=== PATIENT | female | born 1940 | race Caucasian/White ===

== ENCOUNTER 2023-07-01 13:37 | Emergency (ER) | payer MEDICARE, SELFPAY ==
[2023-07-01 14:00] VITALS: BP 149/79
[2023-07-01 14:25] LABS: % Basophils 0.5 % (0-2); % Eosinophils 1.4 % (0-6); % Immature Granulocytes 0.3 % (0-0.5); % Lymphocytes 24.5 % (20.5-51.1); % Monocytes 7.7 % (1.7-9.3); % Neutrophils 65.6 % (42.2-75.2); Absolute Eosinophils 0.1 10^3/uL (0-0.7); Absolute Lymphocytes 1.6 10^3/uL (1.2-3.4); Absolute Monocytes 0.5 10^3/uL (0.1-0.6); Absolute Neutrophils 4.2 10^3/uL (1.4-6.5); Hematocrit 32.5 % (37.0-47.0); Hemoglobin 11.2 g/dL (12.0-16.0); Mean Corp Hgb Conc. 34.5 g/dL (33.0-37.0); Mean Corpuscular Hgb 33.1 pg (27.0-31.0); Mean Corpuscular Volume 96.2 fL (81.0-99.0); Mean Platelet Volume 8.9 fL (7.4-10.4); Nucleated Red Blood Cells % 0 %; Platelet Count 222 10^3/uL (130-400); Red Blood Cell Count 3.38 10^6/uL (4.20-5.40); Red Cell Dist. Width 13.2 % (11.5-14.5); White Blood Cell Count 6.4 10^3/uL (4.8-10.8)
[2023-07-01 14:40] LABS: ALT (SGPT) 22 U/L (0-35); AST (SGOT) 26 U/L (14-36); Albumin 3.8 g/dl (3.5-5.0); Alkaline Phosphatase 96 U/L (38-126); Blood Urea Nitrogen 17 mg/dl (7-17); Calcium 9.1 mg/dl (8.4-10.2); Carbon Dioxide 24 mmol/L (22-30); Chloride 104 mmol/L (98-107); Glucose 107 mg/dl (70-99); Lipase 117 U/L (23-300); Potassium 4.3 mmol/L (3.5-5.1); Sodium 133 mmol/L (135-145); Total Bilirubin 0.5 mg/dl (0.2-1.3); Total Protein 5.9 g/dl (6.3-8.2); eGFR > 60.00
--- NOTE | 2023-07-01 17:04 | ED.GENMED ---
History of Present Illness
General
Chief Complaint: Abdominal Pain
Source: patient
Exam Limitations: none
Time Seen by Provider: 07/01/23 16:53
Travel History
Have you had any contact with someone who has COVID-19?: No
Do you have any symptoms of coronavirus? Fever > 100 degrees, chills, cough, shortness of breath, sore throat, loss of taste or smell, muscle aches, or headache?: No
History of Present Illness
History of Present Illness:
82-year-old female qbk-[id number]-lscpfnnxo diabetic presents complaining of increasing right upper abdominal pain that radiates to the back. She was here in May and diagnosed with gallstones. She has in the interim seen general surgery and had
elective cholecystectomy scheduled for July 10. The pain got worse and she is now unable to tolerate anything by mouth. She denies fever. She cannot control the pain at home she presents for further evaluation. No other complaints at this
time.
Past History
Past History
ED Past Medical History: CHF, GERD, HTN, Hypercholesterolemia, NIDDM, Valvular disease and Psychiatric
ED Past Surgical History: Cardiac and Tonsilectomy
Social History
Tobacco: Non-smoker
Alcohol: None
Drug: None
Personal: Single
Living: with family
Phy Exam
Physical Exam
Physical Exam:
General: Uncomfortable appearing female no acute respiratory distress
HEENT: Normocephalic atraumatic sclera anicteric neck is supple
Heart: Regular rate and rhythm no murmurs
Lungs: Clear to auscultation bilaterally no wheezing
Abdomen: Soft tender to right upper quadrant mild guarding no rebound tenderness normal bowel sounds nondistended
Extremities: No cyanosis or edema
Skin: Warm no rash or lesion
Course
Orders/Labs/Results
Orders:
Orders
07/01/23 14:08
Complete Blood Count/With Diff Urgent
Comprehensive Metabolic Panel Urgent
Lipase Urgent
07/01/23 17:03
Ketorolac [Toradol] 15 mg IV NOW STA
US Abdomen Complete/Upper Urgent
Comment:
Reason For Exam: RUQ pain
Abnormal Lab Results
07/01/23
14:08
RBC 3.38 L 10^6/uL
(4.20-5.40)
Hgb 11.2 L g/dL
(12.0-16.0)
Hct 32.5 L %
(37.0-47.0)
MCH 33.1 H pg
(27.0-31.0)
Sodium 133 L mmol/L
(135-145)
Glucose 107 H mg/dl
(70-99)
Total Protein 5.9 L g/dl
(6.3-8.2)
07/01/23 14:08
07/01/23 14:08
Vital Signs
Initial and Last Documented VS:
Initial Vital Signs
Temp Pulse Resp BP Pulse Ox
98.8 F 97 20 149/79 99
07/01/23 14:00 07/01/23 14:00 07/01/23 14:00 07/01/23 14:00 07/01/23 14:00
Last Documented Vital Signs
Temp Pulse Resp BP Pulse Ox
98.6 F 72 18 135/64 96
07/01/23 19:41 07/01/23 19:00 07/01/23 18:45 07/01/23 19:00 07/01/23 19:00
MDM/Problems Addressed
Differential Diagnosis Includes:
Right upper quadrant pain. Known gallstones. Consider biliary colic versus cholecystitis. Will check labs. Repeat ultrasound. Toradol will be given for pain.
She was here in May of last year and discussion was had to potentially admit versus go home. She decided to go home at that point.
*Critical Care Note
Total Time (30-74mins, 75-104mins- exclusive of procedures): Not Applicable
Update Note
Update Note:
Reevaluated multiple times. Patient still comfortable drinking water. Discussed findings again with patient. There is cholelithiasis without cholecystitis on the ultrasound. Labs are normal. Discussed with general surgery. At this point
cholecystectomy would not happen tomorrow if she were to stay. Patient wishes not to stay. She will wait at home. Will prescribe pain medicine in the event of recurrent discomfort. Return precautions were given otherwise
ED Attending Note
-
Portions of this chart may have been created with voice recognition software.� Occasional wrong word or��sound alike� substitutions may have occurred due to the inherent limitations of voice recognition software.
Discharge Plan
Departure
Patient Disposition: Home (Routine Discharge)
Date of Disposition: 07/01/23
Time of Disposition: 21:03
Patient with high blood pressure during this ER visit?: No
Discharge Problem:
Biliary colic
Instructions: Gallstones (DC)
Prescriptions:
New
tramadol 50 mg tablet
50 mg PO Q8H PRN (Reason: Pain) Qty: 10 0RF
No Action
metformin 500 mg Tablet
1,000 mg PO QPM
Hold Instructions: Resume on 10/29/22. hold till sat. 10/29/22
famotidine 20 mg Tablet
20 mg PO DAILY
calcitonin (salmon) 200 unit/actuation [place],Non-Aerosol
1 spray INTRANASAL (ALT) DAILY
rosuvastatin 40 mg Tablet
40 mg PO DAILY
cholecalciferol (vitamin D3) [Vitamin D3] 50 mcg (2,000 unit) Capsule
50 mcg PO DAILY
bupropion HCl 100 mg Tablet
100 mg PO BID
coenzyme Q10 [CoQ-10] 100 mg Capsule
200 mg PO DAILY
aspirin 81 mg tablet,chewable
81 mg PO DAILY Qty: 1 0RF
multivitamin [Daily Multi-Vitamin] Tablet
1 tab PO DAILY
magnesium 500 mg Tablet
500 mg PO DAILY
zinc acetate 50 mg (zinc) Capsule
50 mg PO DAILY
folic acid 1 mg Tablet
1 mg PO DAILY
Circulation/Vein Support Vitam
2 tab PO DAILY
lisinopril 2.5 mg Tablet
5 mg PO DAILY 30 Days Qty: 60 0RF
cyanocobalamin (vitamin B-12) [Vitamin B-12] 1,000 mcg Tablet
1,000 mcg PO DAILY
furosemide [Lasix] 20 mg Tablet
20 mg PO DAILYPRN PRN (Reason: weight gain)
lutein 20 mg Tablet
20 mg PO DAILY
Referrals:
Laura Ramirez DO [Family Provider] -
Activity Restrictions/Additional Instructions:
Please continue with low-fat diet. Drink plenty of water. Use prescribed pain medicine as needed for severe pain. Return here with inability to tolerate anything by mouth vomiting fever or other concerning findings.
Interventions
Interventions:
*Risk Screen - Suicide Last Done: 07/01/23 17:06
*General Assessment Last Done: 07/01/23 17:06
*Neglect/Abuse Screening Last Done: 07/01/23 18:50
ED- Fall Risk Assessment Last Done: 07/01/23 19:41
*ED COVID-19 Vaccine History Last Done: 07/01/23 17:06
RD-Qiydwr-Mafgnsbcsz Assessment Last Done: 07/01/23 19:41
[2023-07-01 17:06] VITALS: BMI 24.9
[2023-07-01] MEDS: TORADOL 15 MG IV (17:13)
[2023-07-01 18:45] VITALS: BP 138/68
[2023-07-01 19:00] VITALS: BP 135/64
== END 2023-07-01 21:36 | disposition home or self-care (01) ==
LOC: EMR 13:37
PROVIDERS: Emergency Medicine; EMERGENCY PHYSICIAN Student in an Organized Health Care Education/Training Program; FAMILY PHYSICIAN Family Medicine
DX: K80.50 Calculus of bile duct without cholangitis or cholecystitis without obstruction (principal); E11.9 Type 2 diabetes mellitus without complications; I11.0 Hypertensive heart disease with heart failure; I50.9 Heart failure, unspecified; E78.00 Pure hypercholesterolemia, unspecified; K21.9 Gastro-esophageal reflux disease without esophagitis; I38 Endocarditis, valve unspecified; Z79.82 Long term (current) use of aspirin; Z79.84 Long term (current) use of oral hypoglycemic drugs; Z88.5 Allergy status to narcotic agent; Z88.2 Allergy status to sulfonamides; Z88.8 Allergy status to other drugs, medicaments and biological substances; Z88.6 Allergy status to analgesic agent; Z88.1 Allergy status to other antibiotic agents; Z91.041 Radiographic dye allergy status
CPT/HCPCS: 99284; 96374; 76700; 80053; 83690; 85025

== ENCOUNTER 2023-07-10 06:43 | Day surgery (SDC) | payer MEDICARE, SELFPAY ==
[2023-07-10] VITALS (11 sets, daily range): BP systolic 127–192; BP diastolic 63–80; BMI 23.6
[2023-07-10 13:57] LABS: Glucose - Point of Care 37 mg/dl (70-99)
[2023-07-10] MEDS: DEXTROSE 50% SYRINGE 12.5 GRAMS IV (14:06)
[2023-07-10] MEDS: NORMOSOL-R 1000 IV (14:07)
[2023-07-10 14:20] LABS: Glucose - Point of Care 146 mg/dl (70-99)
[2023-07-10] MEDS: IC GREEN 2.5 MG IV (14:23)
--- NOTE | 2023-07-10 14:33 | PTCARENOTE ---
Addendum entered by Suad Quijano RN 07/10/23 14:39:
Report given to SADIA Hunt NOT SADIA Palomo.
Original Note:
Pre-op accucheck 37 at 13:54 in SDS[address] Pt asymptomatic. Dr Martínez made aware. Order received for half amp of D50 IV- administered at 14:00. Repeat accuchcek 146 at 14:19. Report given to SADIA Palomo.
[2023-07-10 16:09] LABS: Glucose - Point of Care 83 mg/dl (70-99)
[2023-07-10 17:02] LABS: Glucose - Point of Care 75 mg/dl (70-99)
--- NOTE | 2023-07-10 18:00 | OR.RPT ---
Operative Report
Operative Report
Primary Surgeon: Pavithra
Assisting Surgeon: Dipak PGY1
Pre-op Diagnosis: Chronic cholecystitis
Post-op Diagnosis: Same
Procedure Performed: Robot assisted laparoscopic cholecystectomy
Anesthesia Type: GETA
Specimen / Cultures: Gallbladder
Estimated Blood Loss: 5
Complications: None immediate
Operative Findings: Floppy gallbladder with minimal omental adhesions
Date of Surgery:� 07/10/23
Indications: This 82F developed biliary colic. Laparoscopic cholecystectomy was elected.
Description of procedure: The patient was placed on the operating table in the supine position. General anesthesia was induced. A time-out was completed verifying correct patient, procedure, site, positioning, and special equipment prior to
beginning this procedure. An orogastric tube was placed. The abdomen was prepped and draped in the usual sterile fashion. The drain was prepped into the field. The drain was prepped into the field. A stab incision was made in left upper quadrant and
the Veress needle was inserted. Proper position was confirmed by aspiration and saline meniscus test. The abdomen was insufflated with carbon dioxide to a pressure of 12mmHg. The patient tolerated insufflation well.
A 8mm trocar was then inserted above the umbilicus. The laparoscope was inserted and the abdomen inspected. No injuries from initial trocar placement or Veress needle insertion were noted. Additional 8mm trocars were then inserted in the following
locations: two in the right lower quadrant and to the left of the umbilicus and just above. The abdomen was inspected and no abnormalities were found. The table was placed in the reverse Trendelenburg position with the right side up. The dome of the
gallbladder was grasped with an atraumatic grasper and retracted over the dome of the liver. The infundibulum was then grasped with an atraumatic grasper and retracted toward the right lower quadrant. This maneuver exposed Calot�s triangle. The
peritoneum overlying the gallbladder infundibulum was then incised and the cystic duct and cystic artery identified and circumferentially dissected so that a clear view of the liver was achieved through a window between the cystic duct an cystic
artery. At this time, the only two structures going into the gallbladder were the cystic artery and cystic duct. The common duct was identified with ICG and protected.
The cystic duct was then doubly clipped and divided. The cystic artery was controlled with bipolar and divided. The gallbladder was then dissected from its peritoneal attachments by electrocautery. Hemostasis was assured and the gallbladder was
removed using an endoscopic retrieval bag placed through the umbilical port. The gallbladder was passed off the table as a specimen. The gallbladder fossa was closely inspected and hemostasis was again assured. There was no evidence of bleeding from
the gallbladder fossa or cystic artery or leakage of the bile from the cystic duct stump. The umbilical trocar site was closed at the fascial level with 2-0 PDS. Secondary trocars were removed under direct vision and noted to be hemostatic. The
abdomen was allowed to collapse. The skin was closed with subcuticular sutures of 4-0 monocryl and topical skin adhesive. The orogastric tube was removed.
The patient tolerated the procedure well and was taken to the postanesthesia care unit in stable condition.
[2023-07-10 18:20] LABS: Glucose - Point of Care 143 mg/dl (70-99)
[2023-07-10] MEDS: COMPAZINE 5 MG IV (18:50)
[2023-07-10 19:47] LABS: Glucose - Point of Care 126 mg/dl (70-99)
[2023-07-10 22:18] LABS: Glucose - Point of Care 158 mg/dl (70-99)
[2023-07-10] MEDS: WELLBUTRIN REGULAR RELEASE PO (22:23)
[2023-07-11] MEDS: ZOFRAN 4 MG IV ×2 (00:10→06:11)
[2023-07-11] MEDS: TYLENOL 650 MG PO ×2 (00:13→05:01)
[2023-07-11 03:14] VITALS: BP 133/64
[2023-07-11 07:58] LABS: Glucose - Point of Care 122 mg/dl (70-99)
[2023-07-11 08:00] VITALS: BP 117/63
[2023-07-11] MEDS: MAGNESIUM OXIDE 500 MG PO (08:01)
[2023-07-11] MEDS: WELLBUTRIN REGULAR RELEASE 100 MG PO (08:02)
[2023-07-11] MEDS: VITAMIN B-6 200 MG PO (08:02)
[2023-07-11] MEDS: FOLVITE 1 MG PO (08:02)
[2023-07-11] MEDS: VITAMIN D3 (cholecalciferol) 50 MCG PO (08:03)
[2023-07-11] MEDS: THERAGRAN 1 TABLET PO (08:04)
[2023-07-11] MEDS: VITAMIN B-12 1000 MCG PO (08:04)
[2023-07-11] MEDS: ZINC SULFATE 220 MG PO (08:04)
[2023-07-11] MEDS: LOW STRENGTH ASPIRIN 81 MG PO (08:04)
[2023-07-11] MEDS: PEPCID 20 MG PO (08:05)
[2023-07-11] MEDS: ZESTRIL 5 MG PO (08:05)
[2023-07-11] MEDS: NEURONTIN 100 MG PO (08:05)
--- NOTE | 2023-07-11 10:35 | CM ---
Reviewed the chart notes and spoke with the patient at the bedside. The patient resides alone in a two story home with seven steps to enter. The patient's bedroom is on the first level. The patient has a cane, shower chair, and shower rail. The
patient reports no VN or SNF in the past. The patient confirmed her pharmacy of choice is the [facility]. The patient anticipates being discharged to home today with no additional needs. Patient's nephew will provide
transporation. CM continues to be available to patient/family and is monitoring medical plan for needs at discharge.
Plan: Discharge to home when medically stable. Nephew will provide transportation.
[2023-07-11] MEDS: MIACALCIN/FORTICAL NASAL SPRAY 1 SPRAY NASAL (11:00)
[2023-07-11 12:05] VITALS: BP 117/55; PULSE 84
--- NOTE | 2023-07-11 12:13 | PTOTSP ---
Pt was able to get OOB and ambulate in hallway with her 2 canes unassisted. She was also able to climb steps with a railing unassisted. Pt plans to stay with a friend temporarily, and friend does not have any stairs. Anticipate pt returning home
today. PT will sign off.
[2023-07-11 12:44] LABS: Glucose - Point of Care 144 mg/dl (70-99)
--- NOTE | 2023-07-11 13:22 | W.PN.GS2 ---
Today's Communication / Plan
-
DC
Assessment / Plan
-
82F POD1 s/p huseyin haydene for CCC
Doing well post-op, meets criteria for DC home
Subjective Data
-
Date of Service: July 11, 2023
AFVS, ambulating, voiding, deysi PO, pain controlled
Objective Data
-
Intake and Output
07/10/23 07/11/23 07/12/23
06:59 06:59 06:59
Intake Total 440 / 440
Balance 440 / 440
Intake:
Oral fluids 240 / 240
IV fluids (Total) 200 / 200
D5NS 100 / 100
normosol 100 / 100
Other:
Number of approximated MODERATE 2
amounts of urine
Vital Signs
Temp Pulse Resp BP Pulse Ox
97.5 F 76 18 117/63 96
07/11/23 08:00 07/11/23 08:00 07/11/23 08:00 07/11/23 08:00 07/11/23 08:00
Physical Exam
-
Gen: NAD
Abd: soft, approp ttp, incisons cdi
[2023-07-11 16:00] VITALS: BP 115/62
== END 2023-07-11 17:32 | disposition home or self-care (01) ==
LOC: SDS 06:43
PROVIDERS: ATTENDING PHYSICIAN Surgery
DX: K80.44 Calculus of bile duct with chronic cholecystitis without obstruction (principal); K80.10 Calculus of gallbladder with chronic cholecystitis without obstruction; K31.A0 Gastric intestinal metaplasia, unspecified
CPT/HCPCS: 47562; 88304; 82962; 97162; 97530

== ENCOUNTER → 2023-08-11 11:37 | Outpatient (REF) | payer MEDICARE, SELFPAY | LOC: RAD 11:37 | PROVIDERS: ATTENDING PHYSICIAN Family Medicine | DX: M25.511 Pain in right shoulder (principal); M54.9 Dorsalgia, unspecified | CPT/HCPCS: 72110; 73030 ==

== ENCOUNTER → 2023-09-05 07:37 | Outpatient (REF) | payer MEDICARE, SELFPAY | LOC: PAVMRI 07:37 | PROVIDERS: ATTENDING PHYSICIAN Orthopaedic Surgery; FAMILY PHYSICIAN Family Medicine | DX: S32.020A Wedge compression fracture of second lumbar vertebra, initial encounter for closed fracture (principal) | CPT/HCPCS: 72148 ==

== ENCOUNTER → 2024-01-08 07:13 | Outpatient (REF) | payer MEDICARE, SELFPAY | LOC: MRI 07:13 | PROVIDERS: ATTENDING PHYSICIAN Orthopaedic Surgery; FAMILY PHYSICIAN Family Medicine | DX: S22.000A Wedge compression fracture of unspecified thoracic vertebra, initial encounter for closed fracture (principal) | CPT/HCPCS: 72146 ==

== ENCOUNTER → 2024-01-29 08:16 | Outpatient (REF) | payer MEDICARE, SELFPAY | LOC: RAD 08:16 | PROVIDERS: ATTENDING PHYSICIAN Family Medicine | DX: R22.1 Localized swelling, mass and lump, neck (principal) | CPT/HCPCS: 76536 ==

== ENCOUNTER 2024-03-18 14:19 | Emergency (ER) | payer MEDICARE, SELFPAY ==
[2024-03-18 14:31] VITALS: BP 153/113
--- NOTE | 2024-03-18 14:36 | ED.GENMED ---
ED Provider Triage
<Robert Yu PA-C - Last Filed: 03/18/24 14:37>
-
Patient seen by provider in Triage?: Seen in Triage
83-year-old female presents for evaluation of arm pain and right thigh pain. She states an elevator door closed on her several days ago. Since then she has had pain to the upper arm and elbow on the right side as well as pain in the right thigh
and hip. She is due for hip replacement. She also complains of a discomfort in the right eye.
No signs of trauma to her head or eye on exam. Will x-ray right humerus forearm and right femur.
History of Present Illness
<Robert Yu PA-C - Last Filed: 03/18/24 14:37>
General
Chief Complaint: Musculo-Skeletal Complaint
Time Seen by Provider: 03/18/24 14:32
<Niraj Lynn PA-C - Last Filed: 03/20/24 08:19>
General
Source: patient
History of Present Illness
History of Present Illness:
83-year-old female presenting to the emergency department for evaluation at the request of her game protector after she had an elevator close on her this past causing her to have mild headache as well as extremity pain to her right
shoulder arm and leg. Patient is not on any anticoagulants. Notes a mild headache. States that she is having pain to the right eye which was surgically repaired due to a 'hole in her retina' and has an appointment scheduled with her
game protector tomorrow but states the game protector would not see her and left she had a CT scan done of her head.
Past History
<Robert Yu PA-C - Last Filed: 03/18/24 14:37>
Past History
ED Past Medical History: CHF, GERD, HTN, Hypercholesterolemia, NIDDM, Valvular disease and Psychiatric
ED Past Surgical History: Cardiac and Tonsilectomy
Social History
Tobacco: Non-smoker
Alcohol: None
Drug: None
Personal: Single
Living: with family
Review of Systems
<Niraj Lynn PA-C - Last Filed: 03/20/24 08:19>
Review of Systems
All Other Systems: ROS reviewed and negative except as documented in HPI and ROS
Phy Exam
<Niraj Lynn PA-C - Last Filed: 03/20/24 08:19>
Physical Exam
Physical Exam:
GENERAL: Alert , in no apparent distress
EYE: conjunctiva clear, pupils 3mm b/l, EOMI, no periorbital edema, gross vision inctact
NECK: Supple
ENT: mmm.
CARDIAC: Regular rate and rhythm
LUNGS: Clear breath sounds bilaterally, no acute respiratory distress, no wheezes/rales/rhonchi
NEUROLOGICAL: Alert and oriented
SKIN: Warm and dry, skin intact.
MUSCULOSKELETAL: well perfused. no signs of trauma
PSYCH: Normal and appropriate interaction.
Scores
<Niraj Lynn PA-C - Last Filed: 03/20/24 08:19>
Heart Failure Risk
Heart Failure Risk Score: Not Applicable
Heart Score for Chest Pain Patients
STEMI patient?: Not applicable
Withdrawal Assessment of Alcohol
Withdrawal Assessment Completed?: Not applicable
Course
<Robert Yu PA-C - Last Filed: 03/18/24 14:37>
Orders/Labs/Results
Orders:
Orders
03/18/24
CR Knee - Left 1 Or 2 Views Urgent
Reason For Exam: INJURY
03/18/24 14:35
CR Femur - Right Min 2 Vw Urgent
Comment:
Reason For Exam: pain
CR Humerus - Right Min 2 View* Urgent
Comment:
Reason For Exam: pain
03/18/24 14:36
CR Forearm - Right 2 View Urgent
Comment:
Reason For Exam: pain
Vital Signs
Initial and Last Documented VS:
Initial Vital Signs
Temp Pulse Resp BP Pulse Ox
97.5 F 97 16 153/113 98
03/18/24 14:31 03/18/24 14:31 03/18/24 14:31 03/18/24 14:31 03/18/24 14:31
Last Documented Vital Signs
Temp Pulse Resp BP Pulse Ox
97.5 F 97 16 153/113 98
03/18/24 14:31 03/18/24 14:31 03/18/24 14:31 03/18/24 14:31 03/18/24 14:31
<Niraj Lynn PA-C - Last Filed: 03/20/24 08:19>
Orders/Labs/Results
Orders:
Orders
03/18/24
CR Knee - Left 1 Or 2 Views Urgent
Reason For Exam: INJURY
03/18/24 14:35
CR Femur - Right Min 2 Vw Urgent
Comment:
Reason For Exam: pain
CR Humerus - Right Min 2 View* Urgent
Comment:
Reason For Exam: pain
03/18/24 14:36
CR Forearm - Right 2 View Urgent
Comment:
Reason For Exam: pain
Vital Signs
Initial and Last Documented VS:
Initial Vital Signs
Temp Pulse Resp BP Pulse Ox
97.5 F 97 16 153/113 98
03/18/24 14:31 03/18/24 14:31 03/18/24 14:31 03/18/24 14:31 03/18/24 14:31
Last Documented Vital Signs
Temp Pulse Resp BP Pulse Ox
97.5 F 97 16 153/113 98
03/18/24 14:31 10/14/24 14:31 03/18/24 14:31 03/18/24 14:31 03/18/24 14:31
<Niraj Lynn PA-C - Last Filed: 03/20/24 08:19>
MDM/Problems Addressed
Differential Diagnosis Includes:
Contusion, concussion, tension headache, overall I do not have concern for intracranial bleeding
MDM/Problems Addressed:
83-year-old female presenting to the emergency department for evaluation at the request of game protector after the elevator door closed on her and since that time patient has had headache and extremity pain. No visual changes. X-rays ordered
from triage are all unremarkable for any acute pathologies. Discussed risk versus benefit of head CT imaging as I do not feel the mechanism as well as duration of time that has passed since the accident would likely yield any significant
intracranial pathology however patient states that her game protector would not see her in the CT was done.
<Niraj Lynn PA-C - Last Filed: 03/20/24 08:19>
*Radiology
Radiology exam reviewed: radiology read reviewed
*Pulse Oximetry
Patient hypoxic: no
*Critical Care Note
Total Time (30-74mins, 75-104mins- exclusive of procedures): Not Applicable
<YUNIER Zendejas Last Filed: 03/20/24 08:19>
Patient Management
Escalation/DeEscalation of care consider admission/obs:
While waiting for head CT, patient states she no longer wishes to proceed with head CT and would like to go home. I think this is reasonable given patient injury occured multiple days ago, minimal impact injury, and patient is without any acute
neurologic symptoms. She has arranged follow up early in the morning with her game protector. Aware of return precautions to the ER.
ED Attending Note
<Robert Yu PA-C - Last Filed: 03/18/24 14:37>
-
Portions of this chart may have been created with voice recognition software.� Occasional wrong word or��sound alike� substitutions may have occurred due to the inherent limitations of voice recognition software.
Discharge Plan
Departure
Patient Disposition: Home (Routine Discharge)
Date of Disposition: 03/18/24
Time of Disposition: 16:59
Patient with high blood pressure during this ER visit?: Yes
Discharge Problem:
Minor head injury, Pain in right arm
Instructions: Minor Head Injury, Adult ED
Prescriptions:
No Action
metformin 500 mg Tablet
1,000 mg PO QPM
famotidine 20 mg Tablet
20 mg PO DAILY
calcitonin (salmon) 200 unit/actuation [place],Non-Aerosol
1 spray INTRANASAL (ALT) DAILY
rosuvastatin 40 mg Tablet
40 mg PO HS
cholecalciferol (vitamin D3) [Vitamin D3] 50 mcg (2,000 unit) Capsule
50 mcg PO DAILY
bupropion HCl 100 mg Tablet
100 mg PO BID
coenzyme Q10 [CoQ-10] 100 mg Capsule
200 mg PO DAILY
aspirin 81 mg tablet,chewable
81 mg PO DAILY Qty: 1 0RF
multivitamin [Daily Multi-Vitamin] Tablet
1 tab PO DAILY
zinc acetate 50 mg (zinc) Capsule
50 mg PO DAILY
folic acid 1 mg Tablet
1 mg PO DAILY
lisinopril 2.5 mg Tablet
5 mg PO DAILY 30 Days Qty: 60 0RF
gabapentin 100 mg Capsule
100 mg PO HS
acetaminophen 650 mg Tablet Extended Release
650 mg PO Q8H PRN (Reason: pain)
pyridoxine (vitamin B6) 100 mg Tablet
200 mg PO DAILY
senna 8.6 mg Capsule
17.2 mg PO HS
[place] Circulation/Vein Suppo
2 cap PO DAILY
magnesium 250 mg Tablet
500 mg PO DAILY
gabapentin 100 mg Tablet
100 mg PO DAILY
oxycodone 5 mg tablet
5 - 10 mg PO Q4HPRN PRN (Reason: moderate to severe pain) Qty: 15 0RF
cyanocobalamin (vitamin B-12) [Vitamin B-12] 1,000 mcg Tablet
1,000 mcg PO DAILY
furosemide [Lasix] 20 mg Tablet
20 mg PO DAILYPRN PRN (Reason: weight gain)
lutein 20 mg Tablet
20 mg PO DAILY
Referrals:
Laura Ramirez DO [Family Provider] -
Interventions
Interventions:
*Risk Screen - Suicide Last Done: 03/18/24 14:31
*General Assessment Last Done: 03/18/24 14:31
*Neglect/Abuse Screening Last Done: 03/18/24 14:31
ED- Fall Risk Assessment Last Done: 03/18/24 15:54
*ED COVID-19 Vaccine History Last Done: 03/18/24 14:31
*Nursing Disposition Last Done: 03/18/24 17:16
ED-Musculoskeletal Assessment Last Done: 03/18/24 15:54
Discharge Date and Time
Discharge Date/Time: 03/18/24 17:20
Print Language: THAI
== END 2024-03-18 17:20 | disposition home or self-care (01) ==
LOC: EMR 14:19
PROVIDERS: EMERGENCY PHYSICIAN Emergency Medicine; FAMILY PHYSICIAN Family Medicine
DX: S09.90XA Unspecified injury of head, initial encounter (principal); M79.621 Pain in right upper arm; M79.651 Pain in right thigh; W23.0XXA Caught, crushed, jammed, or pinched between moving objects, initial encounter; I11.0 Hypertensive heart disease with heart failure; I50.9 Heart failure, unspecified
CPT/HCPCS: 99284; 73060; 73090; 73552; 73560

== ENCOUNTER 2024-03-28 10:13 | Emergency (ER) | payer MEDICARE, SELFPAY ==
[2024-03-28 10:15] VITALS: BP 176/95
--- NOTE | 2024-03-28 10:21 | ED.GENMED ---
ED Provider Triage
<Huma Escoto PA-C - Last Filed: 03/28/24 10:24>
-
Patient seen by provider in Triage?: Seen in Triage
Attestation: A medical screening examination has been initiated by a qualified medical provider. Based on the assessment performed at this time, it has been determined that an emergent medical condition may exist and the patient has been informed
that further medical evaluation and possible additional diagnostic testing may be needed.
HPI: 83yoF here requesting a head CT. She was seen in ED on 03/18 after an elevator door closed on her. +Head strike. She declined head CT at her last ED visit but is having persistent headaches so now wants imaging. Takes a baby aspirin daily.
GENERAL: Alert , in no apparent distress
EYE: No visual abnormalities.
NECK: Trachea midline
ENT: No visible abnormalities.
LUNGS: No acute respiratory distress
NEUROLOGICAL: Alert and oriented
SKIN: Skin intact. No visible changes.
MUSCULOSKELETAL: Moving extremities normally
PSYCH: Normal and appropriate interaction.
This is a medical evaluation conducted in person to initiate diagnostic evaluation and provide initial therapeutics. Please see further documentation by the treating clinician.
CT head ordered.
History of Present Illness
<Huma Escoto PA-C - Last Filed: 03/28/24 10:24>
General
Chief Complaint: Head Injury
Time Seen by Provider: 03/28/24 11:00
<Alex Sy Jr., PA-C - Last Filed: 03/28/24 12:06>
General
Source: patient
Exam Limitations: none
Nursing documentation reviewed up to this point in time: agreed with
History of Present Illness
History of Present Illness:
83-year-old female presenting to the emergency department today with concerns of some ongoing headache after being hit in the head by an elevator 10 days ago. Denies any specific numbness weak chest pain shortness of breath or additional concerns.
Past History
<Huma Escoto PA-C - Last Filed: 03/28/24 10:24>
Past History
ED Past Medical History: CHF, GERD, HTN, Hypercholesterolemia, NIDDM, Valvular disease and Psychiatric
ED Past Surgical History: Cardiac and Tonsilectomy
Social History
Tobacco: Non-smoker
Alcohol: None
Drug: None
Personal: Single
Living: with family
Review of Systems
<Alex Sy Jr., PA-C - Last Filed: 03/28/24 12:06>
Review of Systems
Allergies reviewed?: Yes
All Other Systems: ROS reviewed and negative except as documented in HPI and ROS
Phy Exam
<Alex Sy Jr., PA-C - Last Filed: 03/28/24 12:06>
Physical Exam
Physical Exam:
GENERAL: Alert , in no apparent distress
EYE: pupils equal and reactive
NECK: Supple, no significant adenopathy.
ENT: o/p clr, mmm.
CARDIAC: Regular rate and rhythm .
LUNGS: Clear breath sounds bilaterally, no acute respiratory distress, no wheezes/rales/rhonchi
ABDOMEN: Soft, without focal tenderness, no r/g, no cvat
NEUROLOGICAL: Alert and oriented, no focal neuro deficits
SKIN: Warm and dry, skin intact.
MUSCULOSKELETAL: No edema, well perfused.
PSYCH: Normal and appropriate interaction.
Course
<Huma Escoto PA-C - Last Filed: 03/28/24 10:24>
Orders/Labs/Results
Orders:
Orders
03/28/24 10:23
CT Head W/o Iv Contrast Urgent
Comment:
Reason For Exam: Headache, recent head injury
Vital Signs
Initial and Last Documented VS:
Initial Vital Signs
Temp Pulse Resp BP Pulse Ox
97.9 F 86 18 176/95 94
03/28/24 10:15 03/28/24 10:15 03/28/24 10:15 03/28/24 10:15 03/28/24 10:15
Last Documented Vital Signs
Temp Pulse Resp BP Pulse Ox
97.9 F 86 18 176/95 94
03/28/24 10:15 03/28/24 10:15 03/28/24 10:15 03/28/24 10:15 03/28/24 10:15
<Alex Sy Jr., PA-C - Last Filed: 03/28/24 12:06>
Orders/Labs/Results
Orders:
Orders
03/28/24 10:23
CT Head W/o Iv Contrast Urgent
Comment:
Reason For Exam: Headache, recent head injury
Vital Signs
Initial and Last Documented VS:
Initial Vital Signs
Temp Pulse Resp BP Pulse Ox
97.9 F 86 18 176/95 94
03/28/24 10:15 03/28/24 10:15 03/28/24 10:15 03/28/24 10:15 03/28/24 10:15
Last Documented Vital Signs
Temp Pulse Resp BP Pulse Ox
97.9 F 86 18 176/95 94
03/28/24 10:15 03/28/24 10:15 03/28/24 10:15 03/28/24 10:15 03/28/24 10:15
<Alex Sy Jr., PA-C - Last Filed: 03/28/24 12:06>
MDM/Problems Addressed
MDM/Problems Addressed:
83-year-old female presenting to the emergency department today with some ongoing symptoms after being hit by an elevated 10 days ago. Here the head CT did not show any emergent findings. Patient generally well-appearing no distress normal
neurologic evaluation. Blood pressure was elevated. She was advised for close outpatient follow-up of this. Otherwise stable for discharge. Return precautions given.
<Alex Sy Jr., PA-C - Last Filed: 03/28/24 12:06>
*Critical Care Note
Total Time (30-74mins, 75-104mins- exclusive of procedures): Not Applicable
ED Attending Note
<Huma Escoto PA-C - Last Filed: 03/28/24 10:24>
-
Portions of this chart may have been created with voice recognition software.� Occasional wrong word or��sound alike� substitutions may have occurred due to the inherent limitations of voice recognition software.
Discharge Plan
Departure
Patient Disposition: Home (Routine Discharge)
Date of Disposition: 03/28/24
Time of Disposition: 12:04
Patient with high blood pressure during this ER visit?: Yes
Condition: Good
Covid-19: Not Applicable
Discharge Problem:
Fall, Head injury
Instructions: Minor Head Injury (DC), BLOOD PRESSURE
Prescriptions:
No Action
metformin 500 mg Tablet
1,000 mg PO QPM
famotidine 20 mg Tablet
20 mg PO DAILY
calcitonin (salmon) 200 unit/actuation [place],Non-Aerosol
1 spray INTRANASAL (ALT) DAILY
rosuvastatin 40 mg Tablet
40 mg PO HS
cholecalciferol (vitamin D3) [Vitamin D3] 50 mcg (2,000 unit) Capsule
50 mcg PO DAILY
bupropion HCl 100 mg Tablet
100 mg PO BID
coenzyme Q10 [CoQ-10] 100 mg Capsule
200 mg PO DAILY
aspirin 81 mg tablet,chewable
81 mg PO DAILY Qty: 1 0RF
multivitamin [Daily Multi-Vitamin] Tablet
1 tab PO DAILY
zinc acetate 50 mg (zinc) Capsule
50 mg PO DAILY
folic acid 1 mg Tablet
1 mg PO DAILY
lisinopril 2.5 mg Tablet
5 mg PO DAILY 30 Days Qty: 60 0RF
gabapentin 100 mg Capsule
100 mg PO HS
acetaminophen 650 mg Tablet Extended Release
650 mg PO Q8H PRN (Reason: pain)
pyridoxine (vitamin B6) 100 mg Tablet
200 mg PO DAILY
senna 8.6 mg Capsule
17.2 mg PO HS
Lessman Circulation/Vein Suppo
2 cap PO DAILY
magnesium 250 mg Tablet
500 mg PO DAILY
gabapentin 100 mg Tablet
100 mg PO DAILY
oxycodone 5 mg tablet
5 - 10 mg PO Q4HPRN PRN (Reason: moderate to severe pain) Qty: 15 0RF
cyanocobalamin (vitamin B-12) [Vitamin B-12] 1,000 mcg Tablet
1,000 mcg PO DAILY
furosemide [Lasix] 20 mg Tablet
20 mg PO DAILYPRN PRN (Reason: weight gain)
lutein 20 mg Tablet
20 mg PO DAILY
Referrals:
Laura Ramirez DO [Family Provider] -
Activity Restrictions/Additional Instructions:
You came to the emergency department today with concerns of some ongoing symptoms after being hit by an elevator. Here your head CT did not show any emergent findings. Please follow closely as an outpatient. Return to the emergency department for
any worsening, new or concerning symptoms.
Interventions
Interventions:
*Risk Screen - Suicide Last Done: 03/28/24 10:15
*General Assessment Last Done: 03/28/24 10:15
*Neglect/Abuse Screening Last Done: 03/28/24 10:15
*ED COVID-19 Vaccine History Last Done: 03/28/24 10:15
ED- Neurological Assessment Last Done: 03/28/24 11:28
ED-Skin Assessment Last Done: 03/28/24 11:28
Discharge Date and Time
Print Language: AZERI
== END 2024-03-28 12:28 | disposition home or self-care (01) ==
LOC: EMR 10:13
PROVIDERS: EMERGENCY PHYSICIAN Emergency Medicine; FAMILY PHYSICIAN Family Medicine
DX: S09.90XA Unspecified injury of head, initial encounter (principal); W23.0XXA Caught, crushed, jammed, or pinched between moving objects, initial encounter; I11.0 Hypertensive heart disease with heart failure; I50.9 Heart failure, unspecified; E11.9 Type 2 diabetes mellitus without complications; E78.00 Pure hypercholesterolemia, unspecified; K21.9 Gastro-esophageal reflux disease without esophagitis; Z79.82 Long term (current) use of aspirin
CPT/HCPCS: 99284; 70450

== ENCOUNTER 2024-05-14 08:30 | Outpatient (RCR) | payer MEDICARE, SELFPAY | END 2024-05-14 23:59 | disposition home or self-care (01) | LOC: RPT 08:30 | PROVIDERS: ATTENDING PHYSICIAN Family Medicine | DX: S06.0X0D Concussion without loss of consciousness, subsequent encounter (principal); Z73.6 Limitation of activities due to disability | CPT/HCPCS: 97163 ==

== ENCOUNTER → 2024-06-13 10:55 | Outpatient (REF) | payer OTHER, SELFPAY | LOC: RCS 10:55 | PROVIDERS: ATTENDING PHYSICIAN Internal Medicine Cardiovascular Disease; FAMILY PHYSICIAN Family Medicine | DX: Z95.2 Presence of prosthetic heart valve (principal); I10 Essential (primary) hypertension; R06.81 Apnea, not elsewhere classified | CPT/HCPCS: 71046; 93306 ==

== ENCOUNTER 2024-06-20 09:10 | Outpatient (RCR) | payer OTHER, SELFPAY | END 2024-06-21 07:28 | disposition home or self-care (01) | LOC: RPT 09:10 | PROVIDERS: ATTENDING PHYSICIAN Family Medicine | DX: S06.0X0D Concussion without loss of consciousness, subsequent encounter (principal); Z73.6 Limitation of activities due to disability; R26.89 Other abnormalities of gait and mobility; M25.551 Pain in right hip; M54.2 Cervicalgia | CPT/HCPCS: 97010; 97110 ==

== ENCOUNTER 2024-08-06 07:31 | Emergency (ER) | payer OTHER, SELFPAY ==
[2024-08-06 07:40] VITALS: BP 149/81
[2024-08-06 08:15] LABS: % Basophils 0.2 % (0-2); % Eosinophils 0.1 % (0-6); % Immature Granulocytes 0.4 % (0-0.5); % Lymphocytes 5.3 % (20.5-51.1); % Monocytes 8.1 % (1.7-9.3); % Neutrophils 85.9 % (42.2-75.2); Absolute Immature Granulocytes 0.1 10^3/uL (0-0.05); Absolute Lymphocytes 0.7 10^3/uL (1.2-3.4); Absolute Neutrophils 10.8 10^3/uL (1.4-6.5); Hematocrit 35.4 % (37.0-47.0); Hemoglobin 11.6 g/dL (12.0-16.0); Mean Corp Hgb Conc. 32.8 g/dL (33.0-37.0); Mean Corpuscular Hgb 29.5 pg (27.0-31.0); Mean Corpuscular Volume 90.1 fL (81.0-99.0); Mean Platelet Volume 9.4 fL (7.4-10.4); Nucleated Red Blood Cells % 0 %; Platelet Count 240 10^3/uL (130-400); Red Blood Cell Count 3.93 10^6/uL (4.20-5.40); Red Cell Dist. Width 14.7 % (11.5-14.5); White Blood Cell Count 12.5 10^3/uL (4.8-10.8)
[2024-08-06 08:29] LABS: ALT (SGPT) 28 U/L (0-35); AST (SGOT) 27 U/L (14-36); Albumin 4.1 g/dl (3.5-5.0); Alkaline Phosphatase 73 U/L (38-126); Blood Urea Nitrogen 23 mg/dl (7-17); Calcium 9.8 mg/dl (8.4-10.2); Carbon Dioxide 24 mmol/L (22-30); Chloride 102 mmol/L (98-107); Glucose 158 mg/dl (70-99); Sodium 135 mmol/L (135-145); Total Bilirubin 0.7 mg/dl (0.2-1.3); Total Protein 6.4 g/dl (6.3-8.2); eGFR > 60.00
[2024-08-06 08:37] LABS: NT-proBNP 1240 pg/ml; Troponin I < 0.012 ng/ml
[2024-08-06 08:54] VITALS: BMI 25.8
[2024-08-06 09:00] VITALS: BP 140/72
--- NOTE | 2024-08-06 09:04 | ED.GENMED ---
History of Present Illness
General
Chief Complaint: Breathing Problem
Source: patient
Exam Limitations: none
Time Seen by Provider: 08/06/24 08:42
Nursing documentation reviewed up to this point in time: agreed with
History of Present Illness
History of Present Illness:
84-year-old female presents with sore throat acute on chronic issue states is making it hard to breathe no chest pain no shortness of breath she states her oxycodone makes her mouth and lips dry, is not coughing no fever no chest pain no leg edema
Past History
Past History
ED Past Medical History: CHF, GERD, HTN, Hypercholesterolemia, NIDDM, Valvular disease and Psychiatric
ED Past Surgical History: Cardiac and Tonsilectomy
Social History
Tobacco: Non-smoker
Alcohol: None
Drug: None
Personal: Single
Living: with family
Employment: Retired
Review of Systems
Review of Systems
All Other Systems: Not applicable
Constitutional: Denies fever
EENT: Reports sore throat
Respiratory: Reports trouble breathing
Cardiac: Reports no symptoms
ABD/GI: Reports no symptoms
: Reports no symptoms
Musculoskeletal: Reports no symptoms
Phy Exam
Physical Exam
Physical Exam:
Physical Exam
General: no apparent distress, not acutely ill
Neck: Posterior pharynx is red no trismus no drooling lips are dry
Heart: s1/s2 regular rate and rhythm, no murmur. equal radial pulses.
Lungs: No wheeze
Abdomen: Nontender
Neuro: alert and oriented. no focal neurological deficits
Skin: no rash
Psychiatric: well kept. interactive and cooperative
Extremities: no edema. no calf tenderness.
Scores
Heart Failure Risk
Heart Failure Risk Score: Yes
History of Stroke or TIA: No
History of intubation for respiratory distress: No
Heart rate on ED arrival >/= 110: No
SaO2 <90% on arrival on room air: No
HR >/=110 during 3min walk test (or too ill to perform test): No
ECG has acute ischemic changes: No
Urea >/=12mmol/L (BUN 33.6mg/dL): No
Serum CO2>/=35mmol/L: No
Troponin I or T elevated to VT Level (0.4mg/dL): No
NT-proBNP >/=5,000ng/L (5,000pg/ml): No
HF Risk Score: 0
Admission Status: LOW RISK 2.8% Consider discharge to home with f/u visit to PCP/Hooker Operator
Course
Orders/Labs/Results
Orders:
Orders
08/06/24 07:43
Electrocardiogram (*1) Urgent
Reason for Study: Other
Other Reason for Exam: Respiratory Distress
EKG- Treatment ONCE
08/06/24 07:53
Complete Blood Count/With Diff Urgent
Comprehensive Metabolic Panel Urgent
NT-proBNP Urgent
Troponin I Urgent
08/06/24 08:43
CR Chest - 2 Views Urgent
Comment:
Reason For Exam: sob
08/06/24 08:57
Dexamethasone Sod Phosphate [Decadron] 10 mg IV NOW STA
08/06/24 09:09
Rapid Strep Group A Urgent
JAIDEN Source: Throat/Pharynx
Specimen Description:
Date Specimen was Collected: 08/06/24
Time Specimen was Collected: 09:08
08/06/24 10:16
Furosemide [Lasix] 40 mg IV NOW STA
Abnormal Lab Results
08/06/24
07:53
WBC 12.5 H 10^3/uL
(4.8-10.8)
RBC 3.93 L 10^6/uL
(4.20-5.40)
Hgb 11.6 L g/dL
(12.0-16.0)
Hct 35.4 L %
(37.0-47.0)
MCHC 32.8 L g/dL
(33.0-37.0)
RDW 14.7 H %
(11.5-14.5)
Abs Immat Gran (auto) 0.1 H 10^3/uL
(0-0.05)
Absolute Neuts (auto) 10.8 H 10^3/uL
(1.4-6.5)
Absolute Lymphs (auto) 0.7 L 10^3/uL
(1.2-3.4)
Absolute Monos (auto) 1.0 H 10^3/uL
(0.1-0.6)
Neutrophils % 85.9 H %
(42.2-75.2)
Lymphocytes % 5.3 L %
(20.5-51.1)
BUN 23 H mg/dl
(7-17)
Glucose 158 H mg/dl
(70-99)
08/06/24 07:53
08/06/24 07:53
Vital Signs
Initial and Last Documented VS:
Initial Vital Signs
Temp Pulse Resp BP Pulse Ox
97.8 F 94 16 149/81 94
08/06/24 07:40 08/06/24 07:40 08/06/24 07:40 08/06/24 07:40 08/06/24 07:40
Last Documented Vital Signs
Temp Pulse Resp BP Pulse Ox
97.8 F 84 23 140/72 99
08/06/24 07:40 08/06/24 09:00 08/06/24 09:00 08/06/24 09:00 08/06/24 09:00
MDM/Problems Addressed
Differential Diagnosis Includes:
Medication effect dehydration viral syndrome pharyngitis no signs of epiglottitis retropharyngeal abscess deep space infection by history and physical
MDM/Problems Addressed:
Sore throat
Chronic conditions affecting care: DM and Cardiomyopathy
Acute Exacerbation and/or Progression of Chronic Illness: DM and Cardiomyopathy
*Radiology
Radiology exam reviewed: radiology read reviewed
*Pulse Oximetry
Patient hypoxic: no
*EKG
Interpreted by ED Provider?: Yes
Interpretation: abnormal
Comparison EKG: no comparison EKG present
Heart Rate: 78
Rate: normal
Rhythm: sinus
Ischemia: non-specific ST changes
*Assembling Machine Operator Interpretation
Rate: normal
Interpretation: normal
Heart Rate: 78
Rhythm: sinus
*Critical Care Note
Total Time (30-74mins, 75-104mins- exclusive of procedures): Not Applicable
Update Note
Update Note:
Update patient much improved after saline neb and some steroids chest x-ray noted proBNP noted patient admits to seeing her PCP recently who recommended she take her Lasix more frequently but she has not been, will give her an IV dose here have her
follow-up as an outpatient
ED Attending Note
-
Portions of this chart may have been created with voice recognition software.� Occasional wrong word or��sound alike� substitutions may have occurred due to the inherent limitations of voice recognition software.
Discharge Plan
Departure
Patient Disposition: Home (Routine Discharge)
Date of Disposition: 08/06/24
Time of Disposition: 10:21
Patient with high blood pressure during this ER visit?: No
Condition: Good
Discharge Problem:
(HFpEF) heart failure with preserved ejection fraction, Chronic sore throat
Instructions: *[facility] Heart Failure Instructions, *PCP/Other Hooker Operator Heart Failure Instructions
Prescriptions:
No Action
metformin 500 mg Tablet
1,000 mg PO QPM
famotidine 20 mg Tablet
20 mg PO DAILY
calcitonin (salmon) 200 unit/actuation [place],Non-Aerosol
1 spray INTRANASAL (ALT) DAILY
rosuvastatin 40 mg Tablet
40 mg PO HS
cholecalciferol (vitamin D3) [Vitamin D3] 50 mcg (2,000 unit) Capsule
50 mcg PO DAILY
bupropion HCl 100 mg Tablet
100 mg PO BID
coenzyme Q10 [CoQ-10] 100 mg Capsule
200 mg PO DAILY
aspirin 81 mg tablet,chewable
81 mg PO DAILY Qty: 1 0RF
multivitamin [Daily Multi-Vitamin] Tablet
1 tab PO DAILY
folic acid 1 mg Tablet
1 mg PO DAILY
acetaminophen 650 mg Tablet Extended Release
650 mg PO Q8H PRN (Reason: pain)
pyridoxine (vitamin B6) 100 mg Tablet
200 mg PO DAILY
senna 8.6 mg Capsule
17.2 mg PO HS
Lessman Circulation/Vein Suppo
2 cap PO DAILY
magnesium 250 mg Tablet
500 mg PO DAILY
oxycodone 5 mg tablet
5 - 10 mg PO Q4HPRN PRN (Reason: moderate to severe pain) Qty: 15 0RF
cyanocobalamin (vitamin B-12) [Vitamin B-12] 1,000 mcg Tablet
1,000 mcg PO DAILY
furosemide [Lasix] 20 mg Tablet
20 mg PO DAILYPRN PRN (Reason: weight gain)
Referrals:
Laura Ramirez DO [Family Provider] - Next open appointment
Sammy Barriga MD [Active] - Next open appointment
Interventions
Interventions:
*Risk Screen - Suicide Last Done: 08/06/24 07:40
*General Assessment Last Done: 08/06/24 08:54
*Neglect/Abuse Screening Last Done: 08/06/24 07:40
*ED COVID-19 Vaccine History Last Done: 08/06/24 08:54
ED- Cardiac Assessment Last Done: 08/06/24 08:54
ED- Pulmonary Assessment Last Done: 08/06/24 08:54
Discharge Date and Time
Print Language: BENGALI
[2024-08-06] MEDS: DECADRON 10 MG IV (09:35)
== END 2024-08-06 11:27 | disposition home or self-care (01) ==
LOC: EMR 07:31
PROVIDERS: Emergency Medicine; EMERGENCY PHYSICIAN Emergency Medicine; FAMILY PHYSICIAN Family Medicine
DX: J31.2 Chronic pharyngitis (principal); I11.0 Hypertensive heart disease with heart failure; I50.30 Unspecified diastolic (congestive) heart failure; K21.9 Gastro-esophageal reflux disease without esophagitis; E78.00 Pure hypercholesterolemia, unspecified; M19.90 Unspecified osteoarthritis, unspecified site; E11.40 Type 2 diabetes mellitus with diabetic neuropathy, unspecified; I35.0 Nonrheumatic aortic (valve) stenosis; F41.9 Anxiety disorder, unspecified; F32.A Depression, unspecified; Z79.84 Long term (current) use of oral hypoglycemic drugs; Z79.82 Long term (current) use of aspirin; Z87.820 Personal history of traumatic brain injury; Z88.5 Allergy status to narcotic agent; Z88.2 Allergy status to sulfonamides; Z88.8 Allergy status to other drugs, medicaments and biological substances; Z88.6 Allergy status to analgesic agent; Z88.1 Allergy status to other antibiotic agents; Z91.041 Radiographic dye allergy status
CPT/HCPCS: 99285; 96374; 71046; 80053; 83880; 84484; 85025; 87070; 87880; 93005

== ENCOUNTER 2024-08-30 06:20 | Outpatient (RCR) | payer OTHER, SELFPAY | END 2024-08-30 23:59 | disposition home or self-care (01) | LOC: RST 06:20 | PROVIDERS: ATTENDING PHYSICIAN Family Medicine; PRIMARYCARE PHYSICIAN Family Medicine | DX: F07.81 Postconcussional syndrome (principal); R41.89 Other symptoms and signs involving cognitive functions and awareness; R41.840 Attention and concentration deficit; M25.551 Pain in right hip; W23.0XXD Caught, crushed, jammed, or pinched between moving objects, subsequent encounter; Z87.820 Personal history of traumatic brain injury | CPT/HCPCS: 96125 ==

== ENCOUNTER 2024-09-19 17:11 | Emergency (ER) | payer OTHER, SELFPAY ==
[2024-09-19 17:18] VITALS: BP 139/70; BMI 25.3
[2024-09-19 17:19] VITALS: BP 139/70
[2024-09-19 17:43] LABS: % Basophils 0.2 % (0-2); % Eosinophils 0.3 % (0-6); % Immature Granulocytes 0.6 % (0-0.5); % Monocytes 7.4 % (1.7-9.3); % Neutrophils 78.5 % (42.2-75.2); Absolute Immature Granulocytes 0.1 10^3/uL (0-0.05); Absolute Lymphocytes 1.3 10^3/uL (1.2-3.4); Absolute Monocytes 0.8 10^3/uL (0.1-0.6); Hematocrit 36.8 % (37.0-47.0); Hemoglobin 12.5 g/dL (12.0-16.0); Mean Corpuscular Hgb 30.6 pg (27.0-31.0); Mean Platelet Volume 9.4 fL (7.4-10.4); Nucleated Red Blood Cells % 0 %; Platelet Count 234 10^3/uL (130-400); Red Blood Cell Count 4.09 10^6/uL (4.20-5.40); Red Cell Dist. Width 14.5 % (11.5-14.5); White Blood Cell Count 10.2 10^3/uL (4.8-10.8)
[2024-09-19 17:56] LABS: ALT (SGPT) 29 U/L (0-35); AST (SGOT) 28 U/L (14-36); Alkaline Phosphatase 77 U/L (38-126); Blood Urea Nitrogen 31 mg/dl (7-17); Carbon Dioxide 24 mmol/L (22-30); Chloride 102 mmol/L (98-107); Estimated Creatinine Clearance 42 ml/min; Glucose 176 mg/dl (70-99); Potassium 3.9 mmol/L (3.5-5.1); Sodium 135 mmol/L (135-145); Total Bilirubin 0.6 mg/dl (0.2-1.3); Total Protein 6.2 g/dl (6.3-8.2); eGFR > 60.00
[2024-09-19 18:00] VITALS: BP 130/69
[2024-09-19 18:07] LABS: Troponin I < 0.012 ng/ml
[2024-09-19] MEDS: ZOFRAN 4 MG IV (18:47)
[2024-09-19] MEDS: DECADRON 10 MG IV (18:47)
[2024-09-19] MEDS: DILAUDID 0.5 MG IV (18:48)
[2024-09-19 19:00] VITALS: BP 141/70
[2024-09-19 20:00] VITALS: BP 136/74
[2024-09-19 21:24] LABS: Troponin I 0.027 ng/ml
--- NOTE | 2024-09-19 21:46 | ED.GENMED ---
History of Present Illness
General
Chief Complaint: Chest Pain
Source: patient
Exam Limitations: none
Time Seen by Provider: 09/19/24 17:49
Nursing documentation reviewed up to this point in time: agreed with
History of Present Illness
History of Present Illness:
Patient to ED with complaint of sudden onset of left chest pain. Describes pain as sharp. Demanding narcotic pain medication. Brought to ED via EMS, given fentanyl by EMS. She states it did not help. No associated n/v/diaphoresis. No SOB.
Pain does not radiate.
Past History
Past History
ED Past Medical History: CHF, GERD, HTN, Hypercholesterolemia, NIDDM, Valvular disease and Psychiatric
ED Past Surgical History: Cardiac and Tonsilectomy
Social History
Tobacco: Non-smoker
Alcohol: None
Drug: None
Personal: Single
Living: with family
Employment: Retired
Phy Exam
General Physical Exam
General Presentation: moderate distress
General age: appears stated age
General Skin: warm and dry
General Habitus: normal
General Mental: alert
General Hydration: appears well hydrated
Cardiovascular Exam
Cardiovascular Exam: regular rate/rhythm and no edema
Pulmonary Exam
Pulmonary Exam: lungs clear, no respiratory distress and chest non tender (Pain to palpation left ant. chest.)
Gastrointestinal Exam
Gastrointestinal Exam: normal bowel sounds, non tender, soft, no organomegaly and non distended
Neurological Exam
Neurological Exam: alert, oriented x3, CN II-XII intact, no motor deficits, no sensory deficits, speech normal and normal gait
Musculoskeletal Exam
Musculoskeletal Exam: full ROM and neuro vasc intact
Skin Exam
Skin Exam: normal color, warm/dry and no rash
Psychiatric Exam
Psychiatric Exam: normal mood/affect
Scores
Heart Score for Chest Pain Patients
STEMI patient?: No
History: Moderately Suspicious
ECG: Normal
Age: >/= 65 years
Risk Factors: >/= 3 Risk Factors or History of CAD
Troponin: </= Normal Limit
Heart Score for Chest Pain Patients: 5
Heart Score Risk: 20.3% MACE over next 6 weeks
Course
Orders/Labs/Results
Orders:
Orders
09/19/24 17:13
Electrocardiogram (*1) Urgent
Reason for Study: Chest Pain
EKG- Treatment ONCE
09/19/24 17:35
Complete Blood Count/With Diff Urgent
Comprehensive Metabolic Panel Urgent
Troponin I Urgent
09/19/24 18:04
Dexamethasone Sod Phosphate [Decadron] 10 mg IV NOW STA
HYDROmorphone [Dilaudid] 0.5 mg IV NOW STA
Ondansetron Injectable [Zofran] 4 mg IV NOW STA
09/19/24 18:05
CR Chest - 2 Views Urgent
Comment:
Reason For Exam: SOB, pain
09/19/24 20:49
Troponin I Urgent
09/19/24 22:17
Ketorolac [Toradol] 15 mg IV NOW STA
09/20/24 00:13
Acetaminophen [Tylenol] 650 mg PO NOW STA
Abnormal Lab Results
09/19/24
17:35
RBC 4.09 L 10^6/uL
(4.20-5.40)
Hct 36.8 L %
(37.0-47.0)
Abs Immat Gran (auto) 0.1 H 10^3/uL
(0-0.05)
Absolute Neuts (auto) 8.0 H 10^3/uL
(1.4-6.5)
Absolute Monos (auto) 0.8 H 10^3/uL
(0.1-0.6)
Immature Gran % 0.6 H %
(0-0.5)
Neutrophils % 78.5 H %
(42.2-75.2)
Lymphocytes % 13.0 L %
(20.5-51.1)
BUN 31 H mg/dl
(7-17)
Glucose 176 H mg/dl
(70-99)
Total Protein 6.2 L g/dl
(6.3-8.2)
09/19/24 17:35
09/19/24 17:35
Vital Signs
Initial and Last Documented VS:
Initial Vital Signs
Temp Pulse Resp BP Pulse Ox
97.3 F 87 18 139/70 96
09/19/24 17:18 09/19/24 17:18 09/19/24 17:18 09/19/24 17:18 09/19/24 17:18
Last Documented Vital Signs
Temp Pulse Resp BP Pulse Ox
98.2 F 88 26 138/68 96
09/19/24 19:00 09/19/24 20:00 09/19/24 20:00 09/19/24 22:00 09/19/24 23:00
*Critical Care Note
Total Time (30-74mins, 75-104mins- exclusive of procedures): Not Applicable
Update Note
Update Note:
Patient to ED for left ant. chest pain. No radiation of pain. No n/v/diaphroesis, SOB. Pain to palpation left ant. chest. She was given Dilaudid IV on arrival to ED. States it did not help at all. COntinues to request narcotics. Verbally
abusive to staff. SHe states she has chronic hip pain and does not have pain medication at home. DRY CLEANING CHECKER checked, she filled rx for 120 tabs of oxy on 09-09. I discussed this with her and she now states she has the medication but it doesnt work. SHe
agreed to IV toradol and was able to rest after med. I spoke with her family about my concerns with her narcotic usage. They will speak wtih her. Labs reviewed/ EKg unchanged, troponin neg x 2. VSS WIll discharge home, she will follow up with
PCP in AM. Case discussed with dr. mariee who agrees with findings and plan.
ED Attending Note
-
Portions of this chart may have been created with voice recognition software.� Occasional wrong word or��sound alike� substitutions may have occurred due to the inherent limitations of voice recognition software.
Discharge Plan
Departure
Patient Disposition: Home (Routine Discharge)
Date of Disposition: 09/19/24
Time of Disposition: 21:28
Patient with high blood pressure during this ER visit?: No
Condition: Good
Covid-19: Not Applicable
Discharge Problem:
Chest pain
Instructions: Chest Pain PCP Follow Up
Prescriptions:
No Action
metformin 500 mg Tablet
1,000 mg PO QPM
famotidine 20 mg Tablet
20 mg PO DAILY
calcitonin (salmon) 200 unit/actuation [place],Non-Aerosol
1 spray INTRANASAL (ALT) DAILY
rosuvastatin 40 mg Tablet
40 mg PO HS
cholecalciferol (vitamin D3) [Vitamin D3] 50 mcg (2,000 unit) Capsule
50 mcg PO DAILY
bupropion HCl 100 mg Tablet
100 mg PO BID
coenzyme Q10 [CoQ-10] 100 mg Capsule
200 mg PO DAILY
aspirin 81 mg tablet,chewable
81 mg PO DAILY Qty: 1 0RF
multivitamin [Daily Multi-Vitamin] Tablet
1 tab PO DAILY
folic acid 1 mg Tablet
1 mg PO DAILY
acetaminophen 650 mg Tablet Extended Release
650 mg PO Q8H PRN (Reason: pain)
pyridoxine (vitamin B6) 100 mg Tablet
200 mg PO DAILY
senna 8.6 mg Capsule
17.2 mg PO HS
Lessman Circulation/Vein Suppo
2 cap PO DAILY
magnesium 250 mg Tablet
500 mg PO DAILY
oxycodone 5 mg tablet
5 - 10 mg PO Q4HPRN PRN (Reason: moderate to severe pain) Qty: 15 0RF
cyanocobalamin (vitamin B-12) [Vitamin B-12] 1,000 mcg Tablet
1,000 mcg PO DAILY
furosemide [Lasix] 20 mg Tablet
20 mg PO DAILYPRN PRN (Reason: weight gain)
Referrals:
Laura Ramirez DO [Family Provider] -
Interventions
Interventions:
*Risk Screen - Suicide Last Done: 09/19/24 17:18
*General Assessment Last Done: 09/19/24 17:18
*Neglect/Abuse Screening Last Done: 09/19/24 17:18
*ED- Fall Risk Assessment Last Done: 09/19/24 17:18
*ED COVID-19 Vaccine History Last Done: 09/19/24 17:18
*Nursing Disposition Last Done: 09/20/24 00:10
ED- Cardiac Assessment Last Done: 09/19/24 20:25
Discharge Date and Time
Discharge Date/Time: 09/20/24 00:10
Print Language: GEORGIAN
[2024-09-19 22:00] VITALS: BP 138/68
[2024-09-19] MEDS: TORADOL 15 MG IV (22:20)
[2024-09-20] MEDS: TYLENOL 650 MG PO (00:14)
== END 2024-09-20 00:10 | disposition home or self-care (01) ==
LOC: EMR 17:11
PROVIDERS: Nurse Practitioner; EMERGENCY PHYSICIAN Emergency Medicine; FAMILY PHYSICIAN Family Medicine
DX: R07.89 Other chest pain (principal); I11.0 Hypertensive heart disease with heart failure; I50.9 Heart failure, unspecified; E78.00 Pure hypercholesterolemia, unspecified; K21.9 Gastro-esophageal reflux disease without esophagitis; E11.40 Type 2 diabetes mellitus with diabetic neuropathy, unspecified; I35.0 Nonrheumatic aortic (valve) stenosis; I25.10 Atherosclerotic heart disease of native coronary artery without angina pectoris; M19.90 Unspecified osteoarthritis, unspecified site; F41.9 Anxiety disorder, unspecified; F32.A Depression, unspecified
CPT/HCPCS: 99284; 96374; 96375 ×3; 71046; 80053; 84484; 85025; 93005

== ENCOUNTER 2024-09-25 13:02 | Outpatient (RCR) | payer OTHER, SELFPAY | END 2024-09-25 23:59 | disposition home or self-care (01) | LOC: RPT 13:02 | PROVIDERS: ATTENDING PHYSICIAN Family Medicine; PRIMARYCARE PHYSICIAN Family Medicine | DX: R41.89 Other symptoms and signs involving cognitive functions and awareness (principal); F07.81 Postconcussional syndrome; R41.840 Attention and concentration deficit; M25.551 Pain in right hip; W23.0XXD Caught, crushed, jammed, or pinched between moving objects, subsequent encounter; Z87.820 Personal history of traumatic brain injury | CPT/HCPCS: 97129; 97130 ==

== ENCOUNTER → 2024-11-01 14:15 | Outpatient (REF) | payer OTHER, SELFPAY | LOC: RCS 14:15 | PROVIDERS: ATTENDING PHYSICIAN Internal Medicine Cardiovascular Disease; FAMILY PHYSICIAN Family Medicine | DX: Z95.2 Presence of prosthetic heart valve (principal); I10 Essential (primary) hypertension | CPT/HCPCS: 93306 ==

== ENCOUNTER → 2024-11-07 10:43 | Outpatient (REF) | payer OTHER, SELFPAY | LOC: HWRAD 10:43 | PROVIDERS: ATTENDING PHYSICIAN Internal Medicine Critical Care Medicine; FAMILY PHYSICIAN Family Medicine | DX: R06.02 Shortness of breath (principal); R09.89 Other specified symptoms and signs involving the circulatory and respiratory systems | CPT/HCPCS: 71250 ==

== ENCOUNTER → 2024-11-19 10:33 | Outpatient (REF) | payer OTHER, SELFPAY ==
[2024-11-19 11:08] VITALS: BP 151/63; BP_SYST 85
[2024-11-19 11:45] VITALS: BP 151/90
[2024-11-19 12:19] LABS: Body Fluid Mononuclear 80.8 %; Body Fluid Polymorphonuclear 19.2 %; Body Fluid WBC 1304 /CUMM
[2024-11-19 12:25] LABS: Body Fluid pH 7.43
[2024-11-19 12:30] LABS: Body Fluid Albumin 2.4 g/dl; Body Fluid Glucose 127 mg/dl; Body Fluid LDH 146 U/L
[2024-11-19 14:42] LABS: Body Fluid Second Tech BGK
== END ==
LOC: RADI 10:33
PROVIDERS: ATTENDING PHYSICIAN Internal Medicine Critical Care Medicine; FAMILY PHYSICIAN Family Medicine
DX: J90 Pleural effusion, not elsewhere classified (principal)
CPT/HCPCS: 88305; 32555; 71045; 82042; 82945; 83615; 83986; 84157; 87015; 87070; 87102; 87116; 87205; 87206; 88112; 89051

== ENCOUNTER → 2024-12-02 07:18 | Outpatient (REF) | payer OTHER, SELFPAY | LOC: REG 07:18 | PROVIDERS: ATTENDING PHYSICIAN Internal Medicine Critical Care Medicine; FAMILY PHYSICIAN Family Medicine | DX: I50.9 Heart failure, unspecified (principal) | CPT/HCPCS: 71046 ==

== ENCOUNTER → 2024-12-05 11:02 | Outpatient (REF) | payer OTHER, SELFPAY ==
[2024-12-05 11:50] VITALS: BP 128/82; BP_SYST 74
[2024-12-05 12:15] VITALS: BP 116/78; BP_SYST 17
[2024-12-05 14:56] LABS: Body Fluid Second Tech BGK
== END ==
LOC: RADI 11:02
PROVIDERS: ATTENDING PHYSICIAN Internal Medicine Critical Care Medicine; FAMILY PHYSICIAN Family Medicine
DX: J90 Pleural effusion, not elsewhere classified (principal)
CPT/HCPCS: 32555; 71045; 82945; 83615; 83986; 84157; 87015; 87070; 87102; 87116; 87205; 87206; 88112; 88305; 89051

== ENCOUNTER → 2024-12-25 12:25 | Outpatient (REF) | payer OTHER, SELFPAY | LOC: RAD 12:25 | PROVIDERS: ATTENDING PHYSICIAN Internal Medicine Cardiovascular Disease; FAMILY PHYSICIAN Family Medicine | DX: I50.32 Chronic diastolic (congestive) heart failure (principal); I50.9 Heart failure, unspecified | CPT/HCPCS: 36415; 71046 ==

== ENCOUNTER → 2025-01-07 13:48 | Outpatient (REF) | payer OTHER, SELFPAY | LOC: PAVMRI 13:48 | PROVIDERS: ATTENDING PHYSICIAN Family Medicine | DX: M25.511 Pain in right shoulder (principal) | CPT/HCPCS: 73221 ==

== ENCOUNTER → 2025-02-06 14:33 | Outpatient (REF) | payer OTHER, SELFPAY | LOC: REG 14:33 | PROVIDERS: ATTENDING PHYSICIAN Internal Medicine Critical Care Medicine; FAMILY PHYSICIAN Family Medicine | DX: R06.02 Shortness of breath (principal); I50.9 Heart failure, unspecified | CPT/HCPCS: 71046 ==

== ENCOUNTER → 2025-04-23 12:50 | Outpatient (REF) | payer OTHER, SELFPAY | LOC: RAD 12:50 | PROVIDERS: ATTENDING PHYSICIAN Family Medicine | DX: I50.32 Chronic diastolic (congestive) heart failure (principal) | CPT/HCPCS: 71046 ==